=== PATIENT | female | born 1980 ===

== ENCOUNTER 2016-11-19 10:54 | Observation (INO) | payer OTHER ==
[2016-11-19 11:01] VITALS: BMI 27.4
[2016-11-19] MEDS ORDERED: Sodium Chloride 0.9% 1,000 ML IV STA ×2 (11:13→12:27)
--- NOTE | 2016-11-19 11:16 | ED PDOC ---
HPI: Abdomen Time Seen by Provider: 11/19/16 10:57 Chief Complaint (Nursing): Abdominal Pain Chief Complaint (Provider): Dysuria History Per: Patient History/Exam Limitations: no limitations Onset/Duration Of Symptoms: Days (x2 months) Current Symptoms Are (Timing): Still Present Severity: Mild Associated Symptoms: Vomiting, Back Pain Additional Complaint(s): Patient is a 36 year old female presenting to the ED complaining of dysuria x2 months. Patient also complains of back pain since yesterday and vomiting today. Patient has a history of chronic back pain and takes methadone and oxycodone for the pain. Patient reports she couldnt take her medication today because of the vomiting. PMD: none Past Medical History Reviewed: Historical Data, Nursing Documentation, Vital Signs Vital Signs: Last Vital Signs Temp 98.5 F 11/19/16 11:10 Pulse 67 11/19/16 11:10 Resp 20 11/19/16 11:10 BP 145/50 L 11/19/16 11:10 Pulse Ox 98 11/19/16 11:10 - Medical History PMH: Anxiety (denies taking any meds for it), Fibromyalgia, Kidney Stones, Chronic Kidney Disease Denies: HTN - Surgical History Surgical History: (x 2) - Family History Family History: States: No Known Family Hx - Immunization History Hx Tetanus Toxoid Vaccination: No Hx Influenza Vaccination: No Hx Pneumococcal Vaccination: No - Home Medications Home Medications: Ambulatory Orders Medication Instructions Recorded Metoclopramide [Reglan] 1 tab PO TID PRN #15 tab 12/28/15 Oxycodone HCl/Acetaminophen 1 each PO Q6 PRN 02/04/16 [Endocet 10-325 mg Tablet] Nitrofurantoin Macrocrystals 100 mg PO BID #28 cap 02/12/16 [Macrobid] Oxybutynin Chloride [Oxybutynin 10 mg PO HS #30 ter 02/12/16 Chloride ER] Levofloxacin [Levaquin] 750 mg PO DAILY 7 Days 03/21/16 Metronidazole [Flagyl] 500 mg PO TID 7 Days 03/21/16 - Allergies Allergies/Adverse Reactions: Allergies Allergy/AdvReac Type Severity Reaction Status Date / Time No Known Allergies Allergy Verified 06/15/16 22:13 Review of Systems ROS Statement: Except As Marked, All Systems Reviewed And Found Negative Gastrointestinal: Positive for: Vomiting Genitourinary Female: Positive for: Dysuria Musculoskeletal: Positive for: Back Pain Physical Exam - Reviewed Nursing Documentation Reviewed: Yes Vital Signs Reviewed: Yes - Physical Exam Appears: Positive for: Well, Non-toxic, No Acute Distress Head Exam: Positive for: ATRAUMATIC, NORMAL INSPECTION, NORMOCEPHALIC Skin: Positive for: Normal Color, Warm, DRY Eye Exam: Positive for: Normal appearance, EOMI Neck: Positive for: Normal, Painless ROM Cardiovascular/Chest: Positive for: Regular Rate, Rhythm. Negative for: Gallop , Murmur Respiratory: Positive for: Normal Breath Sounds. Negative for: Accessory Muscle Use, Rhonchi, Respiratory Distress Gastrointestinal/Abdominal: Positive for: Normal Exam, Soft. Negative for: Tenderness Back: Positive for: L CVA Tenderness - ECG O2 Sat by Pulse Oximetry: 98
--- NOTE | 2016-11-19 11:19 | ED PDOC ---
HPI: Abdomen Time Seen by Provider: 11/19/16 10:57 Chief Complaint (Nursing): Abdominal Pain Chief Complaint (Provider): Dysuria History Per: Patient History/Exam Limitations: no limitations Onset/Duration Of Symptoms: Days (x2 months) Current Symptoms Are (Timing): Still Present Severity: Mild Associated Symptoms: Vomiting, Back Pain Additional Complaint(s): Patient is a 36 year old female presenting to the ED complaining of dysuria x2 months. Patient also complains of back pain since yesterday and vomiting today. Patient has a history of chronic back pain and takes methadone and oxycodone for the pain. Patient reports she couldnt take her medication today because of the vomiting. PMD: none Past Medical History Reviewed: Historical Data, Nursing Documentation, Vital Signs Vital Signs: Last Vital Signs Temp 98.5 F 11/19/16 18:58 Pulse 75 11/19/16 18:58 Resp 16 11/19/16 18:58 BP 115/70 11/19/16 18:58 Pulse Ox 99 11/19/16 18:58 - Medical History PMH: Anxiety (denies taking any meds for it), Fibromyalgia, Kidney Stones, Chronic Kidney Disease Denies: HTN - Surgical History Surgical History: (x 2) - Family History Family History: States: No Known Family Hx - Immunization History Hx Tetanus Toxoid Vaccination: No Hx Influenza Vaccination: No Hx Pneumococcal Vaccination: No - Home Medications Home Medications: Ambulatory Orders Medication Instructions Recorded Metoclopramide [Reglan] 1 tab PO TID PRN #15 tab 12/28/15 Oxycodone HCl/Acetaminophen 1 each PO Q6 PRN 02/04/16 [Endocet 10-325 mg Tablet] Nitrofurantoin Macrocrystals 100 mg PO BID #28 cap 02/12/16 [Macrobid] Oxybutynin Chloride [Oxybutynin 10 mg PO HS #30 ter 02/12/16 Chloride ER] Levofloxacin [Levaquin] 750 mg PO DAILY 7 Days 03/21/16 Metronidazole [Flagyl] 500 mg PO TID 7 Days 03/21/16 - Allergies Allergies/Adverse Reactions: Allergies Allergy/AdvReac Type Severity Reaction Status Date / Time No Known Allergies Allergy Verified 06/15/16 22:13 Review of Systems ROS Statement: Except As Marked, All Systems Reviewed And Found Negative Gastrointestinal: Positive for: Vomiting Genitourinary Female: Positive for: Dysuria Musculoskeletal: Positive for: Back Pain Physical Exam - Reviewed Nursing Documentation Reviewed: Yes Vital Signs Reviewed: Yes - Physical Exam Appears: Positive for: Well, Non-toxic, No Acute Distress Head Exam: Positive for: ATRAUMATIC, NORMAL INSPECTION, NORMOCEPHALIC Skin: Positive for: Normal Color, Warm, DRY Eye Exam: Positive for: Normal appearance, EOMI Neck: Positive for: Normal, Painless ROM Cardiovascular/Chest: Positive for: Regular Rate, Rhythm. Negative for: Gallop , Murmur Respiratory: Positive for: Normal Breath Sounds. Negative for: Accessory Muscle Use, Rhonchi, Respiratory Distress Gastrointestinal/Abdominal: Positive for: Normal Exam, Soft. Negative for: Tenderness Back: Positive for: L CVA Tenderness Extremity: Positive for: Normal ROM Neurologic/Psych: Positive for: Alert, Oriented (x3) - Laboratory Results Result Diagrams: 11/19/16 11:30 11/19/16 11:30 - ECG O2 Sat by Pulse Oximetry: 98 (RA) Pulse Ox Interpretation: Normal Medical Decision Making Medical Decision Making: Time: 11:00 Impression: chronic back pain and dysuria Plan: CMP LACT ACID CBC Morphine 4 mg IV IVF Zofran 4 mg IV Urine Culture UA Elevated LFT - GB stones on US CT ordered. 1915 - Pt states she does not want to wait for CT results. States she will f/u with PMD and have him get results. Pt demonstrated understanding of deterioration, sepsis and possible if she leaves AMA. Scribe Attestation: Documented by Mirian Hunter acting as a scribe for Chelsy Dunlap. Scribe Attestation: All medical record entries made by the Scribe were at my direction and personally dictated by me. I have reviewed the chart and agree that the record accurately reflects my personal performance of the history, physical exam, medical decision making, and the department course for this patient. I have also personally directed, reviewed, and agree with the discharge instructions and disposition. Disposition - Clinical Impression Clinical Impression: Abdominal pain, Abnormal LFTs - Disposition Disposition: Against Medical Advice Disposition Time: 19:15 Condition: FAIR
[2016-11-19 11:47] LABS: BASO % 0.4 % (0.0-2.0); EOS % 0.5 % (0.0-4.0); HEMATOCRIT 45.6 % (34.0-47.0); LYMPH # 2.2 K/uL (1.0-4.3); MEAN CELL VOLUME 97.3 fl (81.0-99.0); MEAN CORPUSCULAR HGB CONC 33.9 g/dL (33.0-37.0); MONO # 0.4 K/uL (0.0-0.8); MONO % 5.4 % (0.0-10.0); NEUT # 4.4 K/uL (1.8-7.0); NEUT % 62.7 % (50.0-75.0); NRBC % 0.1 % (0.0-0.0); RED CELL DISTRIBUTION WIDTH 13.2 % (11.5-14.5); WHITE BLOOD COUNT 7.1 K/uL (4.8-10.8)
[2016-11-19 11:57] LABS: ALB/GLOB RATIO 1.1 (1.0-2.1); ALKALINE PHOSPHATASE 137 U/L (38-126); ALT/SGPT 297 U/L (9-52); AST/SGOT 388 U/L (14-36); BLOOD UREA NITROGEN 12 mg/dl (7-17); CALCIUM 9.3 mg/dL (8.4-10.2); CARBON DIOXIDE 19 mmol/L (22-30); CHLORIDE 111 mmol/L (98-107); GFR AFRICAN-AMERICAN > 60; GLUCOSE,RANDOM 96 mg/dL (65-105); POTASSIUM 4.1 MMOL/L (3.6-5.0); SODIUM 142 mmol/l (132-148); TOTAL PROTEIN 8.4 G/DL (6.3-8.2)
[2016-11-19 12:54] LABS: RBC URINE 7 /hpf (0-3); URINE BACTERIA RARE (<OCC); URINE BILIRUBIN NEGATIVE (NEGATIVE); URINE BLOOD LARGE (NEGATIVE); URINE COLOR AMBER (YELLOW); URINE GLUCOSE (UA) NEG (Normal); URINE KETONE NEGATIVE (NEGATIVE); URINE LEUKOCYTE ESTERASE TRACE Leu/uL (Negative); URINE PROTEIN 30 mg/dL (NEGATIVE); WBC URINE 10 /hpf (0-5)
[2016-11-19 14:46] VITALS: RESP 16
--- NOTE | 2016-11-19 15:41 | US ---
HISTORY: abdominal pain, abnormal LFT COMPARISON: None. TECHNIQUE: Sonographic evaluation of the right upper quadrant of the abdomen. FINDINGS: LIVER: Measures approximately 15.6 cm in CC dimension. Smooth contour and normal echogenicity of the liver parenchyma. No mass. No intrahepatic bile duct dilatation. GALLBLADDER: Multiple mobile all intraluminal gallbladder calculi. No pericholecystic fluid collections however patient did at demonstrates sonographic Hooks sign COMMON BILE DUCT: Measures 2.7 mm. No stones. No dilatation. PANCREAS: Unremarkable as visualized. Note that the pancreatic tail not seen due to body habitus and bowel gas No mass. No ductal dilatation. RIGHT KIDNEY: Measures approximately 9.8 x 5.2 x 3.8 cm in length. Normal echogenicity. No calculus, mass, or hydronephrosis. AORTA: No aneurysmal dilatation. IVC: Unremarkable. OTHER FINDINGS: None . IMPRESSION: Cholelithiasis with sonographic Hooks sign. Rule out early acute cholecystitis.
[2016-11-19] MEDS ORDERED: Iohexol 300 100 ML IJ ONE (18:35)
[2016-11-19] MEDS ORDERED: Sodium Chloride 0.9% 50 ML IV ONE (18:36)
[2016-11-19 18:59] VITALS: BP 115/70; PULSE 75; TEMP 98.5
[2016-11-19 19:33] VITALS: O2SAT 98
--- NOTE | 2016-11-19 20:00 | CT ---
EXAM: CT Abdomen and Pelvis With Intravenous Contrast CLINICAL HISTORY: 36 years old, female; Pain; Abdominal pain; Generalized; Additional info: Abdominal pain, abnormal lfts TECHNIQUE: Axial computed tomography images of the abdomen and pelvis with intravenous contrast. This CT exam was performed using one or more of the following dose reduction techniques: automated exposure control, adjustment of the mA and/or kV according to patient size, and/or use of iterative reconstruction technique. Coronal and sagittal reformatted images were created and reviewed. CONTRAST: 95 mL of [id number] administered intravenously. EXAM DATE/TIME: 11/19/2016 5:50 PM COMPARISON: CT - ABD PELVIS PO IV CONTRAST 07/30/2015 6:32:05 AM FINDINGS: Lower thorax: Heart size is normal. Lung bases are clear ABDOMEN: Liver: There is fatty infiltration of the liver. Liver is mildly enlarged. Gallbladder and bile ducts: Gallbladder is distended. There is trace pericholecystic fluid/edema. There are small noncalcified small gallstones. Common bile duct is unremarkable. Pancreas: unremarkable Spleen: unremarkable Adrenals: There is mild diffuse adrenal thickening bilaterally. Kidneys and ureters: unremarkable Stomach and bowel: Stomach is almost empty. Rotation is normal. There are mildly dilated small bowel loops in the left abdomen with air-fluid levels. Distention decreases distally. Appendix is unremarkable. There is mild distal and terminal ileal wall prominence.Colon is incompletely distended which limits evaluation. There is hepatic flexure and transverse colon wall thickening. There is descending colon wall thickening. Appendix: See stomach and bowel PELVIS: Bladder: unremarkable Reproductive: Uterus and adnexal structures are unremarkable. ABDOMEN and PELVIS: Intraperitoneal space: There is trace free fluid.There is no free air. Bones/joints: There are no acute osseous abnormalities Soft tissues: There is mild rectus diastases. There is a very small fat containing umbilical hernia. Vasculature: Vascular structures are unremarkable. There are calcified phleboliths. Lymph nodes: There is no pathologic adenopathy. IMPRESSION: Enterocolitis; mildly enlarged fatty liver; trace pericholecystic fluid/edema, noncalcified gallstones Additional findings as described above.
== END 2016-11-19 19:35 | disposition left against medical advice (07) ==
LOC: H.ER 10:54 → H.EROBSV 14:24
PROVIDERS: ADMIT Emergency Medicine; ATTEND Emergency Medicine
DX: G89.29 Other chronic pain (principal); Z79.891 Long term (current) use of opiate analgesic; F41.9 Anxiety disorder, unspecified; M54.9 Dorsalgia, unspecified; R10.9 Unspecified abdominal pain; R11.10 Vomiting, unspecified; R30.0 Dysuria; R79.89 Other specified abnormal findings of blood chemistry

== ENCOUNTER 2016-11-20 18:52 | Inpatient (IN) | payer OTHER ==
[2016-11-20 18:52] VITALS: BMI 27.4
[~2016-11-20 18:52] MED LIST: Piperacillin/Tazobact 3.375 gm Inj IVPB ONE
[2016-11-20] MEDS ORDERED: Piperacillin/Tazobact 3.375 GM in Sodium Chloride 0.9% 100 ML IV ONE (19:20)
[2016-11-20] MEDS ORDERED: Sodium Chloride 0.9% 1,000 ML IV STA (19:23)
[2016-11-20] MEDS ORDERED: Piperacillin/Tazobact 3.375 gm Inj IVPB ONE (19:37)
[2016-11-20 20:28] LABS: BASO # 0.1 K/uL (0.0-0.2); BASO % 0.6 % (0.0-2.0); EOS % 0.3 % (0.0-4.0); HEMATOCRIT 36.3 % (34.0-47.0); LYMPH # 4.6 K/uL (1.0-4.3); LYMPH % 50.4 % (20.0-40.0); MEAN CELL VOLUME 97.6 fl (81.0-99.0); MEAN CORPUSCULAR HEMOGLOBIN 32.8 pg (27.0-31.0); MEAN CORPUSCULAR HGB CONC 33.5 g/dL (33.0-37.0); MEAN PLATELET VOLUME 9.4 fl (7.2-11.7); MONO # 0.5 K/uL (0.0-0.8); NEUT # 3.9 K/uL (1.8-7.0); NEUT % 42.7 % (50.0-75.0); NRBC % 0.1 % (0.0-0.0); RED CELL DISTRIBUTION WIDTH 13.4 % (11.5-14.5); WHITE BLOOD COUNT 9.2 K/uL (4.8-10.8)
[2016-11-20 20:31] LABS: RBC URINE 4 /hpf (0-3); URINE BACTERIA RARE (<OCC); URINE BILIRUBIN NEGATIVE (NEGATIVE); URINE BLOOD NEGATIVE (NEGATIVE); URINE COLOR AMBER (YELLOW); URINE GLUCOSE (UA) NEG (Normal); URINE KETONE NEGATIVE (NEGATIVE); URINE LEUKOCYTE ESTERASE TRACE Leu/uL (Negative); URINE PROTEIN NEGATIVE (NEGATIVE); WBC URINE 3 /hpf (0-5)
[2016-11-20 20:35] LABS: ALB/GLOB RATIO 1.2 (1.0-2.1); ALKALINE PHOSPHATASE 89 U/L (38-126); ALT/SGPT 131 U/L (9-52); AST/SGOT 59 U/L (14-36); BILIRUBIN,TOTAL 0.7 mg/dl (0.2-1.3); BLOOD UREA NITROGEN 9 mg/dl (7-17); CALCIUM 8.4 mg/dL (8.4-10.2); CARBON DIOXIDE 24 mmol/L (22-30); CHLORIDE 110 mmol/L (98-107); GFR AFRICAN-AMERICAN > 60; GLUCOSE,RANDOM 83 mg/dL (65-105); LIPASE 40 U/L (23-300); POTASSIUM 3.3 MMOL/L (3.6-5.0); SODIUM 142 mmol/l (132-148); TOTAL PROTEIN 6.6 G/DL (6.3-8.2)
[2016-11-20 20:45] LABS: PARTIAL THROMBOPLASTIN TIME 27.4 Seconds (25.6-37.1)
--- NOTE | 2016-11-20 20:46 | ED PDOC ---
HPI: Abdomen Time Seen by Provider: 11/20/16 19:00 Chief Complaint (Nursing): Abdominal Pain Chief Complaint (Provider): Abdominal Pain History Per: Patient History/Exam Limitations: no limitations Current Symptoms Are (Timing): Still Present Location Of Pain/Discomfort: RUQ Associated Symptoms: Vomiting, Loss Of Appetite Additional Complaint(s): Laura Chowdhury is a 36 y/o female, with a pertinent past medical history of gallstones and kidney infection, presenting to the ER on 11/20/2016 with complaints of right upper quadrant pain. Patient was seen in this ER yesterday for a similar presentation, but left before receiving the results from his CT scan. Patient is still complaining of abdominal pain, vomiting, and loss of appetite. She also reports the pain, which radiates to her left flank has been exacerbating and is associated with dysuria and darkened urine. Patient additionally states she has not seen her primary doctor, Dr. Khan, in [place]. Of note, patient also has a past medical history of chronic back pain for which she goes to Dr. Manuel for pain management. Past Medical History Reviewed: Historical Data, Nursing Documentation, Vital Signs Vital Signs: Last Vital Signs Temp 98.2 F 11/20/16 23:20 Pulse 66 11/20/16 23:20 Resp 18 11/20/16 23:20 BP 96/57 L 11/20/16 23:20 Pulse Ox 99 11/20/16 23:20 - Medical History PMH: Anxiety (denies taking any meds for it), Fibromyalgia, Kidney Stones, Chronic Kidney Disease Denies: HTN Other PMH: gallstones, chronic back pain, kidney infection - Surgical History Surgical History: (x 2) - Family History Family History: States: Unknown Family Hx - Social History Current smoker - smoking cessation education provided: Yes Alcohol: None Drugs: Denies - Immunization History Hx Tetanus Toxoid Vaccination: No Hx Influenza Vaccination: No Hx Pneumococcal Vaccination: No - Home Medications Home Medications: Ambulatory Orders Medication Instructions Recorded Metoclopramide [Reglan] 1 tab PO TID PRN #15 tab 12/28/15 Oxycodone HCl/Acetaminophen 1 each PO Q6 PRN 02/04/16 [Endocet 10-325 mg Tablet] Nitrofurantoin Macrocrystals 100 mg PO BID #28 cap 02/12/16 [Macrobid] Oxybutynin Chloride [Oxybutynin 10 mg PO HS #30 ter 02/12/16 Chloride ER] Levofloxacin [Levaquin] 750 mg PO DAILY 7 Days 03/21/16 Metronidazole [Flagyl] 500 mg PO TID 7 Days 03/21/16 - Allergies Allergies/Adverse Reactions: Allergies Allergy/AdvReac Type Severity Reaction Status Date / Time No Known Allergies Allergy Verified 06/15/16 22:13 Review of Systems ROS Statement: Except As Marked, All Systems Reviewed And Found Negative Gastrointestinal: Positive for: Vomiting, Abdominal Pain Genitourinary Female: Positive for: Dysuria Physical Exam - Reviewed Nursing Documentation Reviewed: Yes Vital Signs Reviewed: Yes - Physical Exam Appears: Positive for: Uncomfortable, In Acute Distress ((+) moderate painful distress ) Head Exam: Positive for: ATRAUMATIC, NORMOCEPHALIC Skin: Positive for: Normal Color. Negative for: Rash Eye Exam: Positive for: Normal appearance, EOMI, PERRL ENT: Positive for: Normal ENT Inspection, Other ((+) dry mucuous membranes) Neck: Positive for: Normal, Painless ROM, Supple Cardiovascular/Chest: Positive for: Regular Rate, Rhythm. Negative for: Murmur Respiratory: Positive for: Normal Breath Sounds. Negative for: Wheezing, Respiratory Distress Gastrointestinal/Abdominal: Positive for: Soft, Tenderness ((+) RUQ tenderness ) , Other ((+) Hooks's sign ). Negative for: Mass, Distended, Guarding, Rebound Back: Positive for: R CVA Tenderness Extremity: Positive for: Normal ROM. Negative for: Deformity, Swelling Neurologic/Psych: Positive for: Alert, Oriented. Negative for: Motor/Sensory Deficits - Laboratory Results Result Diagrams: 11/20/16 20:00 11/20/16 20:00 - ECG O2 Sat by Pulse Oximetry: 100 Medical Decision Making Medical Decision Makin:00 Initial Impression- Abdominal Pain Initial Plan- * Drug Screen * Urine Dip * PT * PTT * Dextrose 5% 1,000 ml IV * Morphine 4 mg IVP * Sodium Chloride 1,000 ml IV * Zofran 8 mg IV * Zosyn 4.5 gm IVPB * Urine Cx Past charts were reviewed. Pt has had elevated LFTs and bilirubin upon reviewing prior labs. Ultrasound demonstrated gallstones while CT demonstrated enterocolitis and pericholecystolic fluid. Together, these findings are consisted with Gallbladder Disease. Pt will be hospitalized for cholecystitis pending ER workup. [facility] Pt's pain persists despite IV Morphine. Labs demonstrate improved LFTs. Pt still needs hospitalization for intractable pain. Documented by Jacquie Carpio, acting as a scribe for Bre Clarke MD. All medical record entries made by the Scribe were at my direction and personally dictated by me. I have reviewed the chart and agree that the record accurately reflects my personal performance of the history, physical exam, medical decision making, and the department course for this patient. I have also personally directed, reviewed, and agree with the discharge instructions and disposition. Disposition - Clinical Impression Clinical Impression: Abdominal pain, Cholelithiasis Counseled Patient/Family Regarding: Studies Performed, Diagnosis - Disposition Disposition Time: 19:00 Condition: FAIR - Pt Status Changed To: Hospital Disposition Of: Observation - POA Present On Arrival: None
[2016-11-20] MEDS ORDERED: Sodium Chloride 0.9% 1,000 ML IV SCH (21:00)
--- NOTE | 2016-11-20 21:01 | CP.PCM.HP ---
History of Present Illness - History of Present Illness History of Present Illness: CC: Abd pain, n/v HPI: This is a 36 y/o female with cholelithiasis diagnosed in the past who comes in with 2 days of worsening RUQ pain radiating to the back. She states it started yesterday, and she had come in and was here in the ER. She had to leave to take care of some thing at home, but since the pain and other symptoms did not improve, she came in today. States there is some nb/nb n/v. There is no fever or chills. She was diagnosed with cholelithiasis in the past several months ago, but because sytmpoms improved, she decided to not pursue further workup. Of note patient states she smokes and notes occasional SOB with extensive activity. She has never used any inhalers in the past. ROS: 14 systems reviewed, negative other than HPI MHx: Cholelith., herniated disks SHx: C sec x 2, urethra surgery in the past Allergies: NKDA Medications: As per med rec Family Hx: Reviewed, no relevant findings Social Hx: LIves with family, no EtOH, does smoke 1/2 ppd for many years Present on Admission - Present on Admission Any Indicators Present on Admission: No Past Patient History - Infectious Disease Hx of Infectious Diseases: None - Tetanus Immunizations Tetanus Immunization: Unknown - Past Medical History & Family History Past Medical History?: Yes - Past Social History Alcohol: None Drugs: Denies - CARDIAC Hx Hypertension: No - PULMONARY Hx Respiratory Disorders: No - NEUROLOGICAL Hx Neurological Disorder: No - HEENT Hx HEENT Problems: No - RENAL Hx Chronic Kidney Disease: Yes Hx Kidney Stones: Yes - ENDOCRINE/METABOLIC Hx Endocrine Disorders: No - INTEGUMENTARY Hx Dermatological Problems: No - MUSCULOSKELETAL/RHEUMATOLOGICAL Hx Musculoskeletal Disorders: Yes Hx Back Pain: Yes Hx Herniated Disk: Yes - GASTROINTESTINAL Hx Gastrointestinal Disorders: Yes Hx Colitis: Yes - GENITOURINARY/GYNECOLOGICAL Hx Genitourinary Disorders: Yes Hx Urinary Tract Infection: Yes Other/Comment: Urethral Diverticuli. 02/10/16 excision of urethra - PSYCHIATRIC Hx Anxiety: Yes (denies taking any meds for it) - SURGICAL HISTORY Hx Surgeries: Yes Hx Section: Yes (x2) Other/Comment: cystoscopy epidural injections. excision of urethra 02/10/16 - ANESTHESIA Hx Anesthesia: Yes Hx Anesthesia Reactions: No Hx Malignant Hyperthermia: No Meds Allergies/Adverse Reactions: Allergies Allergy/AdvReac Type Severity Reaction Status Date / Time No Known Allergies Allergy Verified 06/15/16 22:13 Physical Exam - Constitutional Appears: No Acute Distress - Head Exam Head Exam: ATRAUMATIC, NORMOCEPHALIC - Eye Exam Eye Exam: EOMI, PERRL - ENT Exam ENT Exam: Mucous Membranes Moist - Neck Exam Neck exam: Positive for: Full Rom - Respiratory Exam Respiratory Exam: Rhonchi, NORMAL BREATHING PATTERN - Cardiovascular Exam Cardiovascular Exam: REGULAR RHYTHM, +S1, +S2 - GI/Abdominal Exam GI & Abdominal Exam: Normal Bowel Sounds, Soft, Tenderness Additional comments: RUQ TTP - Extremities Exam Extremities exam: Positive for: full ROM, normal inspection - Neurological Exam Neurological exam: Alert, CN II-XII Intact, Oriented x3 - Psychiatric Exam Psychiatric exam: Normal Affect, Normal Mood - Skin Skin Exam: Dry, Warm Results - Vital Signs Recent Vital Signs: Last Vital Signs Temp 99 F 11/20/16 18:59 Pulse 74 11/20/16 18:59 Resp 18 11/20/16 18:59 BP 102/80 11/20/16 18:59 Pulse Ox 100 11/20/16 20:59 - Labs Result Diagrams: 11/20/16 20:00 11/20/16 20:00 Labs: Laboratory Results - last 24 hr 11/20/16 11/20/16 11/20/16 20:00 20:00 20:00 WBC 9.2 RBC 3.72 L Hgb 12.2 D Hct 36.3 MCV 97.6 MCH 32.8 H MCHC 33.5 RDW 13.4 Plt Count 172 MPV 9.4 Neut % (Auto) 42.7 L Lymph % (Auto) 50.4 H [place] % (Auto) 6.0 Eos % (Auto) 0.3 Baso % (Auto) 0.6 Neut # 3.9 Lymph # 4.6 H [place] # 0.5 Eos # 0.0 Baso # 0.1 PT INR APTT Sodium 142 Potassium 3.3 L Chloride 110 H Carbon Dioxide 24 Anion Gap 11 BUN 9 Creatinine 0.7 Est GFR ( Amer) > 60 Est GFR (Non-Af Amer) > 60 Random Glucose 83 Lactic Acid 1.4 Calcium 8.4 Total Bilirubin 0.7 AST 59 H D ALT 131 H D Alkaline Phosphatase 89 Lactate Dehydrogenase 359 Total Protein 6.6 Albumin 3.6 Globulin 3.0 Albumin/Globulin Ratio 1.2 Lipase 40 Urine Color Urine Clarity Urine pH Ur Specific [place] Urine Protein Urine Glucose (UA) Urine Ketones Urine Blood Urine Nitrate Urine Bilirubin Urine Urobilinogen Ur Leukocyte Esterase Urine RBC (Auto) Urine Microscopic WBC Ur Squamous Epith Cells Urine Bacteria Urine Methadone Screen Ur Barbiturates Screen Ur Phencyclidine Scrn Ur Amphetamines Screen U Benzodiazepines Scrn U Oth Cocaine Metabols U Cannabinoids Screen 11/20/16 11/20/16 11/20/16 20:00 20:00 20:00 WBC RBC Hgb Hct MCV MCH MCHC RDW Plt Count MPV Neut % (Auto) Lymph % (Auto) [place] % (Auto) Eos % (Auto) Baso % (Auto) Neut # Lymph # [place] # Eos # Baso # PT 13.2 H INR 1.2 APTT 27.4 Sodium Potassium Chloride Carbon Dioxide Anion Gap BUN Creatinine Est GFR ( Amer) Est GFR (Non-Af Amer) Random Glucose Lactic Acid Calcium Total Bilirubin AST ALT Alkaline Phosphatase Lactate Dehydrogenase Total Protein Albumin Globulin Albumin/Globulin Ratio Lipase Urine Color [place] Urine Clarity Slighty-cloudy Urine pH 6.0 Ur Specific [place] 1.027 Urine Protein Negative Urine Glucose (UA) Neg Urine Ketones Negative Urine Blood Negative Urine Nitrate Negative Urine Bilirubin Negative Urine Urobilinogen 4.0 H Ur Leukocyte Esterase Trace Urine RBC (Auto) 4 H Urine Microscopic WBC 3 Ur Squamous Epith Cells 3 Urine Bacteria Rare Urine Methadone Screen Positive H Ur Barbiturates Screen Negative Ur Phencyclidine Scrn Negative Ur Amphetamines Screen Negative U Benzodiazepines Scrn Positive H U Oth Cocaine Metabols Negative U Cannabinoids Screen Positive H - Imaging and Cardiology CT scan - abdomen Status: Image reviewed by me, Report reviewed by me (CT a/p from 11/19: entercolitis, perichol. fluid, edema, stones) Assessment & Plan (1) Cholelithiasis Assessment and Plan: 36 y/o female with cholelithiasis and possible cholecystitis. 1) Cholelith./Cholecyst -NPO, IVF -Morphine for pain, zofran for n/v IV -Continue zosyn 3.375 q6h as ordered in ED -Surgery consult ([facility]) ordered 2) Hypo K -- possibly 2/2 n/v/decreased PO -IVF with K added 3) DVT PPx -- SCDs only given possible procedure Status: Acute (2) Cholecystitis Status: Acute (3) Hypokalemia Status: Acute (4) DVT prophylaxis Status: Acute
[2016-11-20] MEDS: Piperacillin/Tazobact 3.375 GM in Sodium Chloride 0.9% 100 ML IVPB SCH (23:00)
--- NOTE | 2016-11-20 23:40 | CP.PCM.CON ---
<Marcia Thorne - Last Filed: 11/20/16 23:32> History of Present Illness - History of Present Illness History of Present Illness: General Surgery - DR. Musa 36yo F w/ hx of cholelithiasis who presents to ED w/ persistent RUQ abdominal pain x2 days. Pt states the pain began Sunday night. She describes the pain as a sharp/burning pain located in the RUQ and wrapping around to the R flank. On Sunday morning she decided to come to ED where she had an U/S which showed gallstones and a CT which showed pericholecystic fluid. Pt states that she needed to go home that evening to take care of something but the pain persisted and prompted her to return to the ED today. She had associated nausea and vomited yesterday, nb/nb. She also admits to dysuria but states this is chronic. Pt denies any Fevers/Chills, Chest pain/SOB, Constipation, Diarrhea, hematuria. PMH: Urethral diverticuli, UTI, Herniated discs PSH: , resection of urethral diverticuli Meds: Methadone NKDA Smokes 1/2 PPD, Denies ETOH and ilicit drugs Review of Systems - Review of Systems All systems: reviewed and no additional remarkable complaints except (as per HPI ) Past Patient History - Infectious Disease Hx of Infectious Diseases: None - Tetanus Immunizations Tetanus Immunization: Unknown - Past Medical History & Family History Past Medical History?: Yes - Past Social History Smoking Status: Heavy Smoker > 10 Cigarettes Daily Alcohol: None Drugs: Denies - CARDIAC Hx Hypertension: No - PULMONARY Hx Respiratory Disorders: No - NEUROLOGICAL Hx Neurological Disorder: No - HEENT Hx HEENT Problems: No - RENAL Hx Chronic Kidney Disease: Yes Hx Kidney Stones: Yes - ENDOCRINE/METABOLIC Hx Endocrine Disorders: No - INTEGUMENTARY Hx Dermatological Problems: No - MUSCULOSKELETAL/RHEUMATOLOGICAL Hx Musculoskeletal Disorders: Yes Hx Back Pain: Yes Hx Herniated Disk: Yes - GASTROINTESTINAL Hx Gastrointestinal Disorders: Yes Hx Colitis: Yes - GENITOURINARY/GYNECOLOGICAL Hx Genitourinary Disorders: Yes Hx Urinary Tract Infection: Yes Other/Comment: Urethral Diverticuli. 02/10/16 excision of urethra - PSYCHIATRIC Hx Anxiety: Yes (denies taking any meds for it) - SURGICAL HISTORY Hx Surgeries: Yes Hx Section: Yes (x2) Other/Comment: cystoscopy epidural injections. excision of urethra 02/10/16 - ANESTHESIA Hx Anesthesia: Yes Hx Anesthesia Reactions: No Hx Malignant Hyperthermia: No Meds Allergies/Adverse Reactions: Allergies Allergy/AdvReac Type Severity Reaction Status Date / Time No Known Allergies Allergy Verified 06/15/16 22:13 - Medications Medications: Current Medications Dextrose/Sodium Chloride (Dextrose 5%-0.9% Ns 500 Ml) 1,000 mls @ 100 mls/hr IV .Q10H [facility] Last Admin: 11/20/16 20:05 Dose: 100 mls/hr Piperacillin Sod/Tazobactam (Sod 3.375 gm/ Sodium Chloride) 100 mls @ 100 mls/ hr IVPB Q6 [facility] Oral Electrolytes (Kcl 40meq/ 0.9% 1l) 1,000 mls @ 100 mls/hr IV .Q10H [facility] Stop: 11/21/16 17:01 Morphine Sulfate (Morphine) 1 mg IV Q4 PRN PRN Reason: Pain, Mild (1-3) Morphine Sulfate (Morphine) 2 mg IVP Q4 PRN PRN Reason: Pain, moderate (4-7) Last Admin: 11/20/16 22:08 Dose: 2 mg Morphine Sulfate (Morphine) 4 mg IVP Q4 PRN PRN Reason: Pain, severe (8-10) Ondansetron HCl (Zofran Inj) 4 mg IVP Q6 PRN PRN Reason: Nausea/Vomiting Physical Exam - Constitutional Appears: No Acute Distress - Head Exam Head Exam: ATRAUMATIC, NORMAL INSPECTION, NORMOCEPHALIC - Eye Exam Eye Exam: EOMI, Normal appearance - ENT Exam ENT Exam: Mucous Membranes Dry - Respiratory Exam Respiratory Exam: NORMAL BREATHING PATTERN. absent: Respiratory Distress - Cardiovascular Exam Cardiovascular Exam: REGULAR RHYTHM - GI/Abdominal Exam GI & Abdominal Exam: Distended (mild), Guarding, Soft, Tenderness (RUQ, [place] sign). absent: Firm, Rebound, Rigid - Neurological Exam Neurological exam: Alert, Oriented x3 - Psychiatric Exam Psychiatric exam: Normal Affect, Normal Mood - Skin Skin Exam: Dry, Intact Results - Vital Signs Recent Vital Signs: Last Vital Signs Temp 98.2 F 11/20/16 23:20 Pulse 66 11/20/16 23:20 Resp 18 11/20/16 23:20 BP 96/57 L 11/20/16 23:20 Pulse Ox 99 06/19/17 23:20 - Labs Result Diagrams: 11/20/16 20:00 11/20/16 20:00 - Imaging and Cardiology US - abdomen Status: Image reviewed by me, Report reviewed by me Assessment & Plan - Assessment and Plan (Free Text) Assessment: 36yo F w/ cholelithiasis and prob. cholecystitis -Maintain NPO -IVF and IV Abx -Pain control and Antiemetics prn -Repeat Labs in AM, LFTs -Poss. OR for Lap Cholecystectomy DW Dr. Lencho Thorne PGY2 <Jamal Musa - Last Filed: 11/21/16 21:28> Meds - Medications Medications: Current Medications Piperacillin Sod/Tazobactam (Sod 3.375 gm/ Sodium Chloride) 100 mls @ 100 mls/ hr IVPB Q6 [facility] Last Admin: 11/21/16 15:17 Dose: 100 mls/hr Dextrose/Sodium Chloride (Dextrose 5%/0.45% Ns 1000 Ml) 1,000 mls @ 100 mls/hr IV .Q10H [facility] Stop: 11/22/16 15:30 Ketorolac Tromethamine (Toradol) 15 mg IVP Q6 PRN PRN Reason: Pain, Mild (1-3) Last Admin: 11/21/16 15:19 Dose: 15 mg Morphine Sulfate (Morphine) 1 mg IVP Q6 PRN PRN Reason: Pain, moderate (4-7) Morphine Sulfate (Morphine) 2 mg IVP Q6 PRN PRN Reason: Pain, severe (8-10) Last Admin: 11/21/16 20:30 Dose: 2 mg Ondansetron HCl (Zofran Inj) 4 mg IVP Q6 PRN PRN Reason: Nausea/Vomiting Last Admin: 11/21/16 12:58 Dose: 4 mg Pantoprazole Sodium (Protonix Inj) 40 mg IVP DAILY [facility] Last Admin: 11/21/16 15:53 Dose: 40 mg Saccharomyces Boulardii (Florastor) 250 mg PO BID [facility] Last Admin: 11/21/16 19:15 Dose: Not Given Results - Vital Signs Recent Vital Signs: Last Vital Signs Temp 98.2 F 11/21/16 16:28 Pulse 53 L 11/21/16 16:28 Resp 18 11/21/16 16:28 BP 90/55 L 11/21/16 16:28 Pulse Ox 99 11/21/16 16:28 - Labs Result Diagrams: 11/21/16 06:40 11/21/16 06:40 Labs: Laboratory Results - last 24 hr 11/21/16 11/21/16 11/21/16 06:40 06:40 18:50 WBC 7.5 RBC 3.37 L Hgb 11.1 L Hct 33.0 L MCV 98.1 MCH 33.0 H MCHC 33.6 RDW 13.4 Plt Count 147 MPV 9.8 Neut % (Auto) 44.8 L Lymph % (Auto) 47.8 H Whitley % (Auto) 6.1 Eos % (Auto) 1.0 Baso % (Auto) 0.3 Neut # 3.4 Lymph # 3.6 Whitley # 0.5 Eos # 0.1 Baso # 0.0 Sodium 140 Potassium 3.5 L Chloride 113 H Carbon Dioxide 20 L Anion Gap 11 BUN 6 L Creatinine 0.7 Est GFR ( Amer) > 60 Est GFR (Non-Af Amer) > 60 Random Glucose 76 Calcium 7.2 L Total Bilirubin 0.6 AST 35 ALT 109 H Alkaline Phosphatase 79 Total Protein 5.7 L Albumin 3.0 L Globulin 2.8 Albumin/Globulin Ratio 1.1 Blood Type O POSITIVE Antibody Screen Negative BBK History Checked Patient has bt Attending/Attestation - Attestation I have personally seen and examined this patient.: Yes I have fully participated in the care of the patient.: Yes I have reviewed all pertinent clinical information: Yes Notes (Text): 11/21/16 21:25 Pt was seen and examined at bedside on 11/21/16 Agree with above note and assessment Pt with Acute Cholecystitis and Cholelithiasis OR for Lap/Robotic Cholecystectomy Consent IV antibiotics Plan d.w pt in detail. Risk and benefit explained in detail.
[2016-11-21] MEDS: KCL 40MEQ/NS 1L 1,000 ML IV SCH ×2 (02:24→14:15)
[2016-11-21] MEDS: Piperacillin/Tazobact 3.375 GM in Sodium Chloride 0.9% 100 ML IVPB SCH ×4 (04:30→21:39)
[2016-11-21 08:01] LABS: BASO % 0.3 % (0.0-2.0); EOS # 0.1 K/uL (0.0-0.7); LYMPH # 3.6 K/uL (1.0-4.3); LYMPH % 47.8 % (20.0-40.0); MEAN CELL VOLUME 98.1 fl (81.0-99.0); MEAN CORPUSCULAR HGB CONC 33.6 g/dL (33.0-37.0); MEAN PLATELET VOLUME 9.8 fl (7.2-11.7); MONO # 0.5 K/uL (0.0-0.8); MONO % 6.1 % (0.0-10.0); NEUT # 3.4 K/uL (1.8-7.0); NEUT % 44.8 % (50.0-75.0); RED CELL DISTRIBUTION WIDTH 13.4 % (11.5-14.5); WHITE BLOOD COUNT 7.5 K/uL (4.8-10.8)
[2016-11-21 08:14] LABS: ALB/GLOB RATIO 1.1 (1.0-2.1); ALKALINE PHOSPHATASE 79 U/L (38-126); ALT/SGPT 109 U/L (9-52); AST/SGOT 35 U/L (14-36); BILIRUBIN,TOTAL 0.6 mg/dl (0.2-1.3); BLOOD UREA NITROGEN 6 mg/dl (7-17); CALCIUM 7.2 mg/dL (8.4-10.2); CARBON DIOXIDE 20 mmol/L (22-30); CHLORIDE 113 mmol/L (98-107); GFR AFRICAN-AMERICAN > 60; GLUCOSE,RANDOM 76 mg/dL (65-105); POTASSIUM 3.5 MMOL/L (3.6-5.0); SODIUM 140 mmol/l (132-148); TOTAL PROTEIN 5.7 G/DL (6.3-8.2)
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
--- NOTE | 2016-11-21 09:31 | RAD ---
PROCEDURE: CHEST RADIOGRAPH, 1 VIEW HISTORY: Pre-op/smoker COMPARISON: 12/28/2015. FINDINGS: LUNGS: The lungs are well inflated and clear. PLEURA: No pneumothorax or pleural fluid seen. CARDIOVASCULAR: Normal. OSSEOUS STRUCTURES: No significant abnormalities. VISUALIZED UPPER ABDOMEN: Normal. OTHER FINDINGS: None. IMPRESSION: No active pulmonary disease.
--- NOTE | 2016-11-21 12:21 | CP.PCM.PN ---
<Sonam Parker - Last Filed: 11/21/16 12:21> Subjective - Date & Time of Evaluation Date of Evaluation: 11/21/16 Time of Evaluation: 07:45 - Subjective Subjective: Pt s/e at bedside this AM. NAEO. Patient states that her pain is persistent but well controlled with pain regimen. Denies any nausea or vomiting or fevers this AM. Denies any other symptoms Objective - Vital Signs/Intake and Output Vital Signs (last 24 hours): Temp Pulse Resp BP Pulse Ox 97.9 F 69 18 101/66 98 11/21/16 07:37 11/21/16 07:37 11/21/16 07:37 11/21/16 07:37 11/21/16 07:37 - Medications Medications: Current Medications Dextrose/Sodium Chloride (Dextrose 5%-0.9% Ns 500 Ml) 1,000 mls @ 100 mls/hr IV .Q10H REPLAC[facility] BY [facility] Last Admin: 11/20/16 20:05 Dose: 100 mls/hr Piperacillin Sod/Tazobactam (Sod 3.375 gm/ Sodium Chloride) 100 mls @ 100 mls/ hr IVPB Q6 [facility] Last Admin: 11/21/16 08:59 Dose: 100 mls/hr Ketorolac Tromethamine (Toradol) 15 mg IVP Q6 PRN PRN Reason: Pain, Mild (1-3) Morphine Sulfate (Morphine) 1 mg IVP Q6 PRN PRN Reason: Pain, moderate (4-7) Morphine Sulfate (Morphine) 2 mg IVP Q6 PRN PRN Reason: Pain, severe (8-10) Ondansetron HCl (Zofran Inj) 4 mg IVP Q6 PRN PRN Reason: Nausea/Vomiting - Labs Labs: 11/21/16 06:40 11/21/16 06:40 PT 13.2 Seconds (9.8-13.1) H 11/20/16 20:00 INR 1.2 (0.9-1.2) 11/20/16 20:00 APTT 27.4 Seconds (25.6-37.1) 11/20/16 20:00 - Constitutional Appears: Well, Non-toxic, No Acute Distress - Head Exam Head Exam: ATRAUMATIC, NORMOCEPHALIC - Eye Exam Eye Exam: Normal appearance. absent: Conjunctival injection, Scleral icterus - ENT Exam ENT Exam: Mucous Membranes Moist, Normal Oropharynx - Respiratory Exam Respiratory Exam: NORMAL BREATHING PATTERN. absent: Accessory Muscle Use, Respiratory Distress - Cardiovascular Exam Cardiovascular Exam: RRR - GI/Abdominal Exam GI & Abdominal Exam: Soft, Tenderness (Moderate tenderness RUQ>epigastrium with positive caldera's sign). absent: Distended, Guarding, Rigid - Extremities Exam Extremities Exam: absent: Calf Tenderness, Pedal Edema, Tenderness - Neurological Exam Neurological Exam: Alert, Awake, Oriented x3 - Psychiatric Exam Psychiatric exam: Normal Affect, Normal Mood - Skin Skin Exam: Dry, Intact, Normal Color, Warm Assessment and Plan - Assessment and Plan (Free Text) Assessment: 36yo F w/ cholelithiasis and prob. cholecystitis 11/19 Abdominal US showed cholelithiasis, and CT abdomen and pelvis on 11/19: pericholecystic fluid Plan: -OR tomorrow AM for lap cholecystectomy -Resume a low fat diet as tolerated today, then NPO after midnight -IVF and IV Abx -Pain control and Antiemetics prn -Repeat Labs in AM, LFTs DW Dr. Lencho Parker, PGY1 <Jamal Musa - Last Filed: 11/21/16 21:31> Objective - Vital Signs/Intake and Output Vital Signs (last 24 hours): Temp Pulse Resp BP Pulse Ox 98.2 F 53 L 18 90/55 L 99 11/21/16 16:28 11/21/16 16:28 11/21/16 16:28 11/21/16 16:28 11/21/16 16:28 Intake and Output: 11/21/16 11/22/16 18:59 06:59 Intake Total 1200 Balance 1200 - Medications Medications: Current Medications Piperacillin Sod/Tazobactam (Sod 3.375 gm/ Sodium Chloride) 100 mls @ 100 mls/ hr IVPB Q6 [facility] Last Admin: 11/21/16 15:17 Dose: 100 mls/hr Dextrose/Sodium Chloride (Dextrose 5%/0.45% Ns 1000 Ml) 1,000 mls @ 100 mls/hr IV .Q10H [facility] Stop: 11/22/16 15:30 Ketorolac Tromethamine (Toradol) 15 mg IVP Q6 PRN PRN Reason: Pain, Mild (1-3) Last Admin: 11/21/16 15:19 Dose: 15 mg Morphine Sulfate (Morphine) 1 mg IVP Q6 PRN PRN Reason: Pain, moderate (4-7) Morphine Sulfate (Morphine) 2 mg IVP Q6 PRN PRN Reason: Pain, severe (8-10) Last Admin: 11/21/16 20:30 Dose: 2 mg Ondansetron HCl (Zofran Inj) 4 mg IVP Q6 PRN PRN Reason: Nausea/Vomiting Last Admin: 11/21/16 12:58 Dose: 4 mg Pantoprazole Sodium (Protonix Inj) 40 mg IVP DAILY [facility]PL[facility] Last Admin: 11/21/16 15:53 Dose: 40 mg Saccharomyces Boulardii (Florastor) 250 mg PO BID [facility]PL[facility] Last Admin: 11/21/16 19:15 Dose: Not Given - Labs Labs: 11/21/16 06:40 11/21/16 06:40 PT 13.2 Seconds (9.8-13.1) H 11/20/16 20:00 INR 1.2 (0.9-1.2) 11/20/16 20:00 APTT 27.4 Seconds (25.6-37.1) 11/20/16 20:00 Attending/Attestation - Attestation I have personally seen and examined this patient.: Yes I have fully participated in the care of the patient.: Yes I have reviewed all pertinent clinical information, including history, physical exam and plan: Yes Notes (Text): 11/21/16 21:30 Pt was seen and examined at bedside on 11/21/16 Agree with above note and assessment Pt with Acute Cholecystitis and Cholelithiasis OR for Lap/Robotic Cholecystectomy possible Open Consent IV antibiotics Plan d.w pt in detail. Risk and benefit explained in detail.
--- NOTE | 2016-11-21 17:23 | CARD ---
APPROVED REPORT EKG Measurement Heart [id number] <Conclusion> Sinus bradycardia with premature supraventricular complexes Otherwise normal ECG
[2016-11-21] MEDS: Saccharomyces Boulardi 250 mg Cap PO SCH (19:15)
--- NOTE | 2016-11-21 21:45 | CP.PCM.PN ---
Subjective - Date & Time of Evaluation Date of Evaluation: 11/21/16 Time of Evaluation: 21:30 - Subjective Subjective: Patient this evening has decided to sign out AMA to deal with 'a situation' at home. I informed patient that she is due for surgery tomorrow, and that her cholelithiasis/cystitis is still under treatment and the risks of signing out. She stated that she understood, but that she would leave now and possibly come back tomorrow. Objective - Vital Signs/Intake and Output Vital Signs (last 24 hours): Temp Pulse Resp BP Pulse Ox 98.2 F 53 L 18 90/55 L 99 11/21/16 16:28 11/21/16 16:28 11/21/16 16:28 11/21/16 16:28 11/21/16 16:28 Intake and Output: 11/21/16 11/22/16 18:59 06:59 Intake Total 1200 Balance 1200 - Medications Medications: Current Medications Piperacillin Sod/Tazobactam (Sod 3.375 gm/ Sodium Chloride) 100 mls @ 100 mls/ hr IVPB Q6 [facility] Last Admin: 11/21/16 21:39 Dose: 100 mls/hr Dextrose/Sodium Chloride (Dextrose 5%/0.45% Ns 1000 Ml) 1,000 mls @ 100 mls/hr IV .Q10H [facility] Stop: 11/22/16 15:30 Ketorolac Tromethamine (Toradol) 15 mg IVP Q6 PRN PRN Reason: Pain, Mild (1-3) Last Admin: 11/21/16 15:19 Dose: 15 mg Morphine Sulfate (Morphine) 1 mg IVP Q6 PRN PRN Reason: Pain, moderate (4-7) Morphine Sulfate (Morphine) 2 mg IVP Q6 PRN PRN Reason: Pain, severe (8-10) Last Admin: 11/21/16 20:30 Dose: 2 mg Ondansetron HCl (Zofran Inj) 4 mg IVP Q6 PRN PRN Reason: Nausea/Vomiting Last Admin: 11/21/16 12:58 Dose: 4 mg Pantoprazole Sodium (Protonix Inj) 40 mg IVP DAILY [facility] Last Admin: 11/21/16 15:53 Dose: 40 mg Saccharomyces Boulardii (Florastor) 250 mg PO BID [facility] Last Admin: 11/21/16 19:15 Dose: Not Given - Labs Labs: 11/21/16 06:40 11/21/16 06:40 PT 13.2 Seconds (9.8-13.1) H 11/20/16 20:00 INR 1.2 (0.9-1.2) 11/20/16 20:00 APTT 27.4 Seconds (25.6-37.1) 11/20/16 20:00 Assessment and Plan (1) Cholelithiasis Status: Acute (2) Cholecystitis Status: Acute (3) Hypokalemia Status: Acute (4) DVT prophylaxis Status: Acute
[2016-11-22] MEDS ORDERED: Sodium Chloride 0.9% 1,000 ML IV SCH (00:01)
[2016-11-22] MEDS: Dextrose 5%/0.45% NS 1,000 ML IV SCH (00:32)
[2016-11-22] MEDS: Piperacillin/Tazobact 3.375 GM in Sodium Chloride 0.9% 100 ML IVPB SCH ×4 (03:39→22:37)
[2016-11-22 07:14] LABS: BASO # 0.1 K/uL (0.0-0.2); BASO % 0.7 % (0.0-2.0); EOS % 0.7 % (0.0-4.0); LYMPH # 3.7 K/uL (1.0-4.3); LYMPH % 48.4 % (20.0-40.0); MEAN CELL VOLUME 97.3 fl (81.0-99.0); MEAN CORPUSCULAR HEMOGLOBIN 33.4 pg (27.0-31.0); MEAN CORPUSCULAR HGB CONC 34.3 g/dL (33.0-37.0); MEAN PLATELET VOLUME 10.1 fl (7.2-11.7); MONO # 0.4 K/uL (0.0-0.8); MONO % 5.8 % (0.0-10.0); NEUT # 3.4 K/uL (1.8-7.0); NEUT % 44.4 % (50.0-75.0); NRBC % 0.2 % (0.0-0.0); RED CELL DISTRIBUTION WIDTH 13.3 % (11.5-14.5); WHITE BLOOD COUNT 7.6 K/uL (4.8-10.8)
[2016-11-22 07:19] LABS: ALB/GLOB RATIO 1.1 (1.0-2.1); ALKALINE PHOSPHATASE 76 U/L (38-126); ALT/SGPT 101 U/L (9-52); AST/SGOT 35 U/L (14-36); BILIRUBIN,TOTAL 0.6 mg/dl (0.2-1.3); BLOOD UREA NITROGEN 7 mg/dl (7-17); CALCIUM 8.2 mg/dL (8.4-10.2); CARBON DIOXIDE 19 mmol/L (22-30); CHLORIDE 113 mmol/L (98-107); GFR AFRICAN-AMERICAN > 60; GLUCOSE,RANDOM 86 mg/dL (65-105); SODIUM 141 mmol/l (132-148); TOTAL PROTEIN 5.9 G/DL (6.3-8.2)
[2016-11-22 07:37] LABS: PARTIAL THROMBOPLASTIN TIME 29.4 Seconds (25.6-37.1)
[2016-11-22] MEDS ORDERED: Lactated Ringer's 1,000 ML IV ONE ×2 (09:25→09:35)
[2016-11-22] MEDS ORDERED: Lidocaine 1% Inj (20ml) IJ ONE ×2 (09:45)
[2016-11-22] MEDS ORDERED: Bupivacaine 0.5% 50 ML IJ ONE ×2 (09:45)
[2016-11-22] MEDS: HYDROmorphone 0.5 mg/0.5 ml ISec IVP PRN ×5 (11:35→12:45)
--- NOTE | 2016-11-22 12:03 | PCM.SURG1 ---
Surgeon's Initial Post Op Note - Surgeon's Notes Surgeon: Dr. Musa Patrol Inspector: Dr Thorne Type of Anesthesia: General Endo Anesthesia Administered By: José Pre-Operative Diagnosis: Acute cholecystitis Operative Findings: same Post-Operative Diagnosis: same Operation Performed: Robotic Cholecystectomy Specimen/Specimens Removed: gallbladder Estimated Blood Loss: EBL {In ML}: 20 Blood Products Given: N/A Drains Used: Andrea Post-Op Condition: Good Date of Surgery/Procedure: 11/22/16 Time of Surgery/Procedure: 12:03
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
[2016-11-22] MEDS: Oxycodone/Acetaminophen 5/325 mg Tab PO PRN ×2 (16:18→22:53)
--- NOTE | 2016-11-22 18:00 | OP ---
PROCEDURE DATE: 11/22/2016 PREOPERATIVE DIAGNOSIS: Acute cholecystitis and cholelithiasis. POSTOPERATIVE DIAGNOSES: 1. Acute cholecystitis and cholelithiasis. 2. Extensive pericholecystic and perihepatic fluid collection. PROCEDURES DONE: 1. Robotic cholecystectomy. 2. Robotic drainage of Extensive pericholecystic and the perihepatic fluid collection. SURGEON: Jamal Musa MD RN POST PARTUM: Marcia Thorne, PGY-2 resident. ANESTHESIA: General endotracheal tube anesthesia. ESTIMATED BLOOD LOSS: Around 10 mL. DRAINS: A 19-Ugandan Andrea drain was placed. COMPLICATIONS: None. INTRAOPERATIVE FINDINGS: The patient had changes of acute cholecystitis and cholelithiasis and the patient had unusual amount of perihepatic perigallbladder , as well as right upper quadrant extensive fluid collection, as well as edema. INTRAOPERATIVE STEPS: This is a 36-year-old female who was diagnosed with acute cholecystitis and cholelithiasis, and patient was consented for laparoscopic-assisted robotic cholecystectomy, possible open. Brought to the OR , placed supine on the operating table. After induction of the anesthesia, the abdomen was prepped and draped in the usual sterile fashion. The supraumbilical transverse 1.5 cm incision was made. After incising skin and subcutaneous tissue, the fascia was incised, the robotic camera port was placed , pneumo was created. Another 3 mm port was placed in upper abdomen and robot was brought in. The camera arm and arm 1 and arm 2 were docked and the gallbladder appeared to be extremely thick and edematous and gallbladder had the fluid collections surrounding the duodenum, as well as the base of the gallbladder, as well as the perihepatic area, and forced suction irrigation of all the fluid was done and gallbladder was retracted cranially. Calot's triangle dissection was done. Cystic duct and cystic artery were identified. The intraoperative Firefly was used for identification of the anatomy, and after proper identification the cystic duct and cystic artery were divided and gallbladder was dissected free from the gallbladder fossa. The patient had a proper hemostasis in each and every part of the procedure and, due to the extensive nature of the fluid collection, as well as edema, the 19-Ugandan Andrea drain was placed and all instruments were taken out. Robot was undocked. All the ports were taken out under vision. Pneumo was deflated. The umbilical port site was closed in 2 layers, the fascia with a 0 Vicryl interrupted suture , skin with a 4-0 Monocryl, and dry sterile dressing was applied. The patient tolerated the procedure well. Count of instruments and gauze was correct. There was no apparent complication. The patient was extubated in the OR, sent to the postanesthesia care unit in stable condition. Jamal Musa MD cc: [id number] TT: 11/22/2016 17:59:30 eve MENDOZA
[2016-11-22] MEDS: Saccharomyces Boulardi 250 mg Cap PO SCH (18:19)
[2016-11-23] MEDS: Dextrose 5%/0.45% NS 1,000 ML IV SCH (00:12)
[2016-11-23] MEDS: Piperacillin/Tazobact 3.375 GM in Sodium Chloride 0.9% 100 ML IVPB SCH ×2 (03:43→09:10)
[2016-11-23 07:03] LABS: BASO % 0.1 % (0.0-2.0); EOS % 0.2 % (0.0-4.0); HEMATOCRIT 34.5 % (34.0-47.0); LYMPH # 3.8 K/uL (1.0-4.3); LYMPH % 39.4 % (20.0-40.0); MEAN CELL VOLUME 97.2 fl (81.0-99.0); MEAN CORPUSCULAR HEMOGLOBIN 33.5 pg (27.0-31.0); MEAN CORPUSCULAR HGB CONC 34.5 g/dL (33.0-37.0); MONO # 0.8 K/uL (0.0-0.8); NEUT # 5.1 K/uL (1.8-7.0); NEUT % 52.3 % (50.0-75.0); NRBC % 0.1 % (0.0-0.0); RED CELL DISTRIBUTION WIDTH 13.5 % (11.5-14.5); WHITE BLOOD COUNT 9.7 K/uL (4.8-10.8)
[2016-11-23 07:17] LABS: ALB/GLOB RATIO 1.1 (1.0-2.1); ALKALINE PHOSPHATASE 73 U/L (38-126); ALT/SGPT 90 U/L (9-52); AST/SGOT 30 U/L (14-36); BILIRUBIN,TOTAL 0.7 mg/dl (0.2-1.3); BLOOD UREA NITROGEN 5 mg/dl (7-17); CALCIUM 8.2 mg/dL (8.4-10.2); CARBON DIOXIDE 22 mmol/L (22-30); CHLORIDE 109 mmol/L (98-107); GFR AFRICAN-AMERICAN > 60; GLUCOSE,RANDOM 97 mg/dL (65-105); POTASSIUM 3.5 MMOL/L (3.6-5.0); SODIUM 139 mmol/l (132-148); TOTAL PROTEIN 5.8 G/DL (6.3-8.2)
[2016-11-23 07:34] VITALS: BP 112/75; PULSE 54; RESP 18; TEMP 98.2; O2SAT 100
[2016-11-23] MEDS: Saccharomyces Boulardi 250 mg Cap PO SCH (09:09)
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
== END 2016-11-23 12:04 | disposition left against medical advice (07) | DRG 493 ==
LOC: H.ER 18:52 → H.ERHOLD 20:40 → OBSVTOIN 20:56 → INTOOBSV 20:56 → H.MEDSURG1 11-21 04:20
PROVIDERS: ADMIT Internal Medicine; ATTEND Internal Medicine
PROC: 8E0W4CZ Robotic Assisted Procedure of Trunk Region, Percutaneous Endoscopic Approach (ICD-10-PCS; 2016-11-22)
PROC: 0W9G4ZZ Drainage of Peritoneal Cavity, Percutaneous Endoscopic Approach (ICD-10-PCS; 2016-11-22)
PROC: 0FT44ZZ Resection of Gallbladder, Percutaneous Endoscopic Approach (ICD-10-PCS; principal; 2016-11-22 08:45)
DX: K80.00 Calculus of gallbladder with acute cholecystitis without obstruction (principal); E87.6 Hypokalemia; N18.9 Chronic kidney disease, unspecified; F17.200 Nicotine dependence, unspecified, uncomplicated; G89.29 Other chronic pain; F41.9 Anxiety disorder, unspecified; M79.7 Fibromyalgia